=== PATIENT | female | born 2000 | race Caucasian/White ===

== ENCOUNTER 2018-07-02 15:50 | Emergency (ER) | payer MEDICAID, OTHER ==
[2018-07-02 17:53] LABS: URINE BLOOD (Dip) POC Trace-intact (NEGATIVE); URINE GLUCOSE (Dip) POC Negative (NEGATIVE); URINE KETONES (Dip) POC 2+ (NEGATIVE); URINE LEUKOCYTE EST (Dip) POC Negative (NEGATIVE); URINE NITRITE (Dip) POC Negative (NEGATIVE); URINE TOTAL PROTEIN POC Trace (NEGATIVE)
== END 2018-07-02 18:15 | disposition home or self-care (01) ==
LOC: FTE 18:15
DX: R10.2 Pelvic and perineal pain (principal)
CPT/HCPCS: 76856; 81003; 81025; 99284-25

== ENCOUNTER 2018-08-17 13:50 | Emergency (ER) | payer SELFPAY, MEDICAID | END 2018-08-17 16:35 | disposition left against medical advice (07) | LOC: FTE 13:50 | DX: Z53.21 Procedure and treatment not carried out due to patient leaving prior to being seen by health care provider (principal) ==

== ENCOUNTER 2018-08-23 12:36 | Emergency (ER) | payer OTHER ==
[2018-08-23 13:44] LABS: URINE BLOOD (Dip) POC Negative (NEGATIVE); URINE GLUCOSE (Dip) POC Negative (NEGATIVE); URINE KETONES (Dip) POC 2+ (NEGATIVE); URINE LEUKOCYTE EST (Dip) POC Negative (NEGATIVE); URINE NITRITE (Dip) POC Negative (NEGATIVE); URINE TOTAL PROTEIN POC Trace (NEGATIVE)
[2018-08-23] MEDS: METOCLOPRAMIDE 10 MG INJ IV (13:49)
[2018-08-23] MEDS: SOD CHLORIDE 0.9% 1,000 ML IV (13:50)
[2018-08-23 13:58] LABS: ADD MAN DIFF? NO
[2018-08-23 14:05] LABS: BASOPHILS % 0.1 % (0.0-2.0); EOSINOPHILS % 0.5 % (0.0-7.0); HEMATOCRIT 40.5 % (37.0-47.0); HEMOGLOBIN 13.1 g/dl (12.0-16.0); LYMPHOCYTES # 1.8 10^3/ul (0.8-2.9); LYMPHOCYTES % 22.8 % (18.0-55.0); MEAN CORPUSCULAR HEMOGLOBIN 26.6 pg (29.0-33.0); MEAN CORPUSCULAR HGB CONC 32.3 g/dl (32.0-37.0); MEAN CORPUSCULAR VOLUME 82.2 fl (72.0-104.0); MEAN PLATELET VOLUME 10.4 fl (7.4-10.4); MONOCYTE # 0.6 10^3/ul (0.3-0.9); MONOCYTES % 7.7 % (0.0-13.0); NEUTROPHIL # 5.5 10^3/ul (1.6-7.5); NEUTROPHILS % 68.4 % (30.0-74.0); PLATELET COUNT 295 10^3/UL (140-415); RED BLOOD COUNT 4.93 10^6/ul (4.20-5.40); RED CELL DISTRIBUTION WIDTH 15.9 % (11.5-14.5)
[2018-08-23 14:24] LABS: ALANINE AMINOTRANSFERASE 17 IU/L (13-69); ALBUMIN 4.7 g/dl (3.3-4.9); ALKALINE PHOSPHATASE 72 IU/L (42-121); ANION GAP 14 (5-13); ASPARTATE AMINO TRANSFERASE 25 IU/L (15-46); BILIRUBIN,INDIRECT 0.5 mg/dl (0-1.1); BILIRUBIN,TOTAL 0.5 mg/dl (0.2-1.3); BLOOD UREA NITROGEN 5 mg/dl (7-20); CALCIUM 9.7 mg/dl (8.4-10.2); CARBON DIOXIDE 22 mmol/L (21-31); CHLORIDE 102 mmol/L (97-110); CREATININE 0.48 mg/dl (0.44-1.00); Estimated GFR > 60 mL/min (>60); GLUCOSE 85 mg/dl (70-220); POTASSIUM 3.7 mmol/L (3.5-5.1); SODIUM 138 mmol/L (135-144); TOTAL PROTEIN 8.3 g/dl (6.1-8.1)
[2018-08-23 14:58] LABS: ADD UMIC NO; UR ASCORBIC ACID NEGATIVE (NEGATIVE); UR BILIRUBIN (Dip) NEGATIVE (NEGATIVE); UR BLOOD (Dip) NEGATIVE (NEGATIVE); UR CLARITY CLEAR (CLEAR); UR COLOR YELLOW (YELLOW); UR GLUCOSE (Dip) NEGATIVE (NEGATIVE); UR KETONES (Dip) 1+ mg/dL (NEGATIVE); UR LEUKOCYTE ESTERASE (Dip) NEGATIVE Leu/ul (NEGATIVE); UR NITRITE (Dip) NEGATIVE (NEGATIVE); UR SPECIFIC GRAVITY (Dip) 1.016 (1.003-1.030); UR TOTAL PROTEIN (Dip) NEGATIVE (NEGATIVE); UR UROBILINOGEN (Dip) NEGATIVE (NEGATIVE)
== END 2018-08-23 17:16 | disposition home or self-care (01) ==
LOC: FTE 12:36
DX: O21.0 Mild hyperemesis gravidarum (principal); R10.2 Pelvic and perineal pain; O10.011 Pre-existing essential hypertension complicating pregnancy, first trimester; Z3A.01 Less than 8 weeks gestation of pregnancy
CPT/HCPCS: 36415; 76705; 76801; 80053; 81003; 84702; 85025; 96374; 99285-25

== ENCOUNTER 2018-09-02 14:08 | Emergency (ER) | payer OTHER ==
[2018-09-02] MEDS: SOD CHLORIDE 0.9% 1,000 ML IV (16:37)
[2018-09-02] MEDS: METOCLOPRAMIDE 10 MG INJ IV (16:39)
[2018-09-02 16:41] LABS: ADD MAN DIFF? NO
[2018-09-02 16:44] LABS: BASOPHILS % 0.2 % (0.0-2.0); EOSINOPHILS % 0.3 % (0.0-7.0); HEMATOCRIT 37.9 % (37.0-47.0); HEMOGLOBIN 12.6 g/dl (12.0-16.0); LYMPHOCYTES % 18.5 % (18.0-55.0); MEAN CORPUSCULAR HEMOGLOBIN 27.2 pg (29.0-33.0); MEAN CORPUSCULAR HGB CONC 33.2 g/dl (32.0-37.0); MEAN CORPUSCULAR VOLUME 81.9 fl (72.0-104.0); MEAN PLATELET VOLUME 10.1 fl (7.4-10.4); MONOCYTE # 0.6 10^3/ul (0.3-0.9); MONOCYTES % 5.9 % (0.0-13.0); NEUTROPHIL # 8.1 10^3/ul (1.6-7.5); NEUTROPHILS % 74.6 % (30.0-74.0); PLATELET COUNT 292 10^3/UL (140-415); RED BLOOD COUNT 4.63 10^6/ul (4.20-5.40); RED CELL DISTRIBUTION WIDTH 15.5 % (11.5-14.5)
[2018-09-02 16:44] LABS: WHITE BLOOD COUNT 10.8 10^3/ul (4.8-10.8)
[2018-09-02 17:03] LABS: ALANINE AMINOTRANSFERASE 13 IU/L (13-69); ALBUMIN 4.6 g/dl (3.3-4.9); ALBUMIN/GLOBULIN RATIO 1.31; ALKALINE PHOSPHATASE 71 IU/L (42-121); ANION GAP 12 (5-13); ASPARTATE AMINO TRANSFERASE 21 IU/L (15-46); BILIRUBIN,INDIRECT 0.6 mg/dl (0-1.1); BILIRUBIN,TOTAL 0.6 mg/dl (0.2-1.3); BLOOD UREA NITROGEN 7 mg/dl (7-20); CALCIUM 9.9 mg/dl (8.4-10.2); CARBON DIOXIDE 21 mmol/L (21-31); CHLORIDE 105 mmol/L (97-110); Estimated GFR > 60 mL/min (>60); GLUCOSE 78 mg/dl (70-220); POTASSIUM 3.6 mmol/L (3.5-5.1); SODIUM 138 mmol/L (135-144); TOTAL PROTEIN 8.1 g/dl (6.1-8.1)
[2018-09-02 17:05] LABS: ADD UMIC NO; UR ASCORBIC ACID NEGATIVE (NEGATIVE); UR BILIRUBIN (Dip) NEGATIVE (NEGATIVE); UR BLOOD (Dip) NEGATIVE (NEGATIVE); UR CLARITY SLIGHTLY CLOUDY (CLEAR); UR COLOR YELLOW (YELLOW); UR GLUCOSE (Dip) NEGATIVE (NEGATIVE); UR KETONES (Dip) 2+ mg/dL (NEGATIVE); UR LEUKOCYTE ESTERASE (Dip) NEGATIVE Leu/ul (NEGATIVE); UR MUCUS MANY /HPF (NONE SEEN); UR NITRITE (Dip) NEGATIVE (NEGATIVE); UR RBC 2 /HPF (0-5); UR SPECIFIC GRAVITY (Dip) 1.026 (1.003-1.030); UR SQUAMOUS EPITHELIAL CELL MODERATE /HPF (FEW); UR TOTAL PROTEIN (Dip) NEGATIVE (NEGATIVE); UR UROBILINOGEN (Dip) 1+ mg/dL (NEGATIVE); UR WBC 2 /HPF (0-5)
== END 2018-09-02 18:45 | disposition home or self-care (01) ==
LOC: FTE 14:08
DX: O20.9 Hemorrhage in early pregnancy, unspecified (principal); O21.0 Mild hyperemesis gravidarum; O10.011 Pre-existing essential hypertension complicating pregnancy, first trimester; R10.2 Pelvic and perineal pain; Z3A.08 8 weeks gestation of pregnancy
CPT/HCPCS: 76801; 80053; 81001; 81003; 81025; 84702; 85025; 86900; 86901; 96361; 96374; 99285-25

== ENCOUNTER 2018-09-24 12:16 | Emergency (ER) | payer OTHER ==
[2018-09-24 13:29] LABS: ADD MAN DIFF? NO
[2018-09-24 13:34] LABS: WHITE BLOOD COUNT 8.8 10^3/ul (4.8-10.8)
[2018-09-24 13:35] LABS: BASOPHILS % 0.2 % (0.0-2.0); EOSINOPHILS % 0.2 % (0.0-7.0); HEMATOCRIT 37.2 % (37.0-47.0); HEMOGLOBIN 12.7 g/dl (12.0-16.0); LYMPHOCYTES # 1.9 10^3/ul (0.8-2.9); LYMPHOCYTES % 22.1 % (18.0-55.0); MEAN CORPUSCULAR HEMOGLOBIN 27.9 pg (29.0-33.0); MEAN CORPUSCULAR HGB CONC 34.1 g/dl (32.0-37.0); MEAN CORPUSCULAR VOLUME 81.6 fl (72.0-104.0); MEAN PLATELET VOLUME 9.9 fl (7.4-10.4); MONOCYTE # 0.5 10^3/ul (0.3-0.9); MONOCYTES % 5.6 % (0.0-13.0); NEUTROPHIL # 6.3 10^3/ul (1.6-7.5); NEUTROPHILS % 71.6 % (30.0-74.0); PLATELET COUNT 275 10^3/UL (140-415); RED BLOOD COUNT 4.56 10^6/ul (4.20-5.40); RED CELL DISTRIBUTION WIDTH 14.8 % (11.5-14.5)
[2018-09-24 15:06] LABS: URINE BLOOD (Dip) POC Trace-intact (NEGATIVE); URINE GLUCOSE (Dip) POC Negative (NEGATIVE); URINE KETONES (Dip) POC Negative (NEGATIVE); URINE LEUKOCYTE EST (Dip) POC Negative (NEGATIVE); URINE NITRITE (Dip) POC Negative (NEGATIVE); URINE TOTAL PROTEIN POC Negative (NEGATIVE)
[2018-09-24] MEDS: ACETAMINOPHEN 325 MG TAB PO (15:06)
== END 2018-09-24 15:40 | disposition home or self-care (01) ==
LOC: FTE 12:16
DX: O20.0 Threatened abortion (principal); O10.011 Pre-existing essential hypertension complicating pregnancy, first trimester; Z3A.12 12 weeks gestation of pregnancy
CPT/HCPCS: 36415; 76801; 81003; 84702; 85025; 99284-25

== ENCOUNTER 2018-11-18 23:30 | Outpatient (CLI) | payer OTHER ==
[2018-11-19 00:37] LABS: ADD UMIC YES; UR ASCORBIC ACID NEGATIVE (NEGATIVE); UR BACTERIA FEW /HPF (NONE SEEN); UR BILIRUBIN (Dip) NEGATIVE (NEGATIVE); UR BLOOD (Dip) NEGATIVE (NEGATIVE); UR CLARITY CLOUDY (CLEAR); UR COLOR YELLOW (YELLOW); UR GLUCOSE (Dip) NEGATIVE (NEGATIVE); UR KETONES (Dip) NEGATIVE (NEGATIVE); UR LEUKOCYTE ESTERASE (Dip) 2+ Leu/ul (NEGATIVE); UR MUCUS FEW /HPF (NONE SEEN); UR NITRITE (Dip) NEGATIVE (NEGATIVE); UR RBC 3 /HPF (0-5); UR SPECIFIC GRAVITY (Dip) 1.027 (1.003-1.030); UR SQUAMOUS EPITHELIAL CELL MANY /HPF (FEW); UR TOTAL PROTEIN (Dip) NEGATIVE (NEGATIVE); UR UROBILINOGEN (Dip) NEGATIVE (NEGATIVE); UR WBC 9 /HPF (0-5)
== END 2018-11-19 02:27 | disposition home or self-care (01) ==
LOC: OBT 23:30 → L-D 23:30
DX: O26.892 Other specified pregnancy related conditions, second trimester (principal); R10.9 Unspecified abdominal pain; Z3A.23 23 weeks gestation of pregnancy
CPT/HCPCS: 76815; 76817; 81001; 87086

== ENCOUNTER 2018-11-26 14:08 | Inpatient (IN) | payer MEDICAID, OTHER ==
[2018-11-26 15:27] LABS: ADD MAN DIFF? NO
[2018-11-26 15:29] LABS: BASOPHILS % 0.4 % (0.0-2.0); EOSINOPHILS # 0.1 10^3/ul (0.0-0.5); EOSINOPHILS % 1.3 % (0.0-7.0); HEMOGLOBIN 10.9 g/dl (12.0-16.0); LYMPHOCYTES # 2.1 10^3/ul (0.8-2.9); LYMPHOCYTES % 24.4 % (18.0-55.0); MEAN CORPUSCULAR HEMOGLOBIN 28.4 pg (29.0-33.0); MEAN CORPUSCULAR HGB CONC 34.1 g/dl (32.0-37.0); MEAN CORPUSCULAR VOLUME 83.3 fl (72.0-104.0); MEAN PLATELET VOLUME 10.5 fl (7.4-10.4); MONOCYTE # 0.7 10^3/ul (0.3-0.9); MONOCYTES % 8.2 % (0.0-13.0); NEUTROPHIL # 5.6 10^3/ul (1.6-7.5); PLATELET COUNT 223 10^3/UL (140-415); RED BLOOD COUNT 3.84 10^6/ul (4.20-5.40); RED CELL DISTRIBUTION WIDTH 13.4 % (11.5-14.5)
[2018-11-26 15:29] LABS: WHITE BLOOD COUNT 8.5 10^3/ul (4.8-10.8)
[2018-11-26 16:01] LABS: ADD UMIC NO; UR ASCORBIC ACID NEGATIVE (NEGATIVE); UR BILIRUBIN (Dip) NEGATIVE (NEGATIVE); UR BLOOD (Dip) NEGATIVE (NEGATIVE); UR CLARITY CLEAR (CLEAR); UR COLOR YELLOW (YELLOW); UR GLUCOSE (Dip) NEGATIVE (NEGATIVE); UR KETONES (Dip) NEGATIVE (NEGATIVE); UR LEUKOCYTE ESTERASE (Dip) NEGATIVE Leu/ul (NEGATIVE); UR NITRITE (Dip) NEGATIVE (NEGATIVE); UR SPECIFIC GRAVITY (Dip) 1.018 (1.003-1.030); UR TOTAL PROTEIN (Dip) NEGATIVE (NEGATIVE); UR UROBILINOGEN (Dip) NEGATIVE (NEGATIVE)
[2018-11-26] MEDS: LACTATED RINGER'S 1,000 ML IV ×3 (16:27→23:55)
[2018-11-26] MEDS: GENTAMICIN 80 MG/NS (PMX) 50 ML IVPB ×2 (16:31→23:55)
[2018-11-26] MEDS: ACETAMINOPHEN 325 MG TAB PO (19:37)
[2018-11-27] MEDS: GENTAMICIN 80 MG/NS (PMX) 50 ML IVPB ×3 (08:01→23:12)
[2018-11-27] MEDS: LACTATED RINGER'S 1,000 ML IV ×3 (08:02→23:12)
[2018-11-27] MEDS: FERROUS SULFATE (EC) 325 MG TAB PO (09:06)
[2018-11-27] MEDS: PRENATAL VITAMIN PO (09:06)
[2018-11-27] MEDS: HYDROCODONE/APAP (10/325) TAB PO (10:35)
[2018-11-27] MEDS: ONDANSETRON 4 MG INJ IV (10:35)
[2018-11-27] MEDS: ACETAMINOPHEN 325 MG TAB PO (19:43)
[2018-11-28] MEDS: ACETAMINOPHEN 325 MG TAB PO ×2 (00:13→20:26)
[2018-11-28] MEDS: GENTAMICIN 80 MG/NS (PMX) 50 ML IVPB (06:12)
[2018-11-28] MEDS: LACTATED RINGER'S 1,000 ML IV ×2 (06:12→18:43)
[2018-11-28] MEDS: PRENATAL VITAMIN PO (10:08)
[2018-11-28] MEDS: FERROUS SULFATE (EC) 325 MG TAB PO (10:08)
[2018-11-28] MEDS: NA PHOSPHATE/BIPHOS 133 ML ENEMA PR (10:20)
[2018-11-28] MEDS: DOCUSATE SODIUM 100 MG CAP PO ×2 (10:20→20:27)
[2018-11-28 10:26] LABS: ADD MAN DIFF? NO
[2018-11-28 10:31] LABS: BASOPHILS % 0.3 % (0.0-2.0); EOSINOPHILS # 0.1 10^3/ul (0.0-0.5); EOSINOPHILS % 0.8 % (0.0-7.0); HEMOGLOBIN 10.2 g/dl (12.0-16.0); LYMPHOCYTES # 1.7 10^3/ul (0.8-2.9); LYMPHOCYTES % 24.3 % (18.0-55.0); MEAN CORPUSCULAR HEMOGLOBIN 27.6 pg (29.0-33.0); MEAN CORPUSCULAR HGB CONC 32.9 g/dl (32.0-37.0); MEAN PLATELET VOLUME 10.9 fl (7.4-10.4); MONOCYTE # 0.5 10^3/ul (0.3-0.9); MONOCYTES % 7.3 % (0.0-13.0); NEUTROPHIL # 4.8 10^3/ul (1.6-7.5); NEUTROPHILS % 66.7 % (30.0-74.0); PLATELET COUNT 211 10^3/UL (140-415); RED BLOOD COUNT 3.69 10^6/ul (4.20-5.40); RED CELL DISTRIBUTION WIDTH 13.6 % (11.5-14.5)
[2018-11-28 10:31] LABS: WHITE BLOOD COUNT 7.1 10^3/ul (4.8-10.8)
[2018-11-28 10:50] LABS: ADD UMIC NO; UR ASCORBIC ACID NEGATIVE (NEGATIVE); UR BILIRUBIN (Dip) NEGATIVE (NEGATIVE); UR BLOOD (Dip) NEGATIVE (NEGATIVE); UR CLARITY CLEAR (CLEAR); UR COLOR STRAW (YELLOW); UR GLUCOSE (Dip) NEGATIVE (NEGATIVE); UR KETONES (Dip) NEGATIVE (NEGATIVE); UR LEUKOCYTE ESTERASE (Dip) NEGATIVE Leu/ul (NEGATIVE); UR NITRITE (Dip) NEGATIVE (NEGATIVE); UR SPECIFIC GRAVITY (Dip) 1.001 (1.003-1.030); UR TOTAL PROTEIN (Dip) NEGATIVE (NEGATIVE); UR UROBILINOGEN (Dip) NEGATIVE (NEGATIVE)
[2018-11-28] MEDS: ACETAMINOPHEN 1000MG/100ML IV 100 ML IVPB (10:58)
[2018-11-28] MEDS: ONDANSETRON 4 MG INJ IV (11:28)
[2018-11-28] MEDS: CYCLOBENZAPRINE 10 MG TAB PO (16:05)
[2018-11-28] MEDS: metroNIDAZOLE 500 MG TAB PO (20:28)
[2018-11-28 20:33] LABS: AMPHETAMINE/METHAMPHETAMINE Negative (NEGATIVE); BARBITURATES Negative (NEGATIVE); BENZODIAZEPINES Negative (NEGATIVE); CANNABINOIDS Negative (NEGATIVE); COCAINE Negative (NEGATIVE); OPIATES Negative (NEGATIVE)
[2018-11-28] MEDS ORDERED: MICONAZOLE 2% 45 GM VAG CR VAG (21:00)
[2018-11-29] MEDS: PRENATAL VITAMIN PO (10:05)
[2018-11-29] MEDS: DOCUSATE SODIUM 100 MG CAP PO (10:06)
[2018-11-29] MEDS: ACETAMINOPHEN 325 MG TAB PO (10:13)
[2018-11-29] MEDS: LACTATED RINGER'S 1,000 ML IV (15:20)
[2018-11-29] MEDS: GENTAMICIN 80 MG/NS (PMX) 50 ML IVPB (15:21)
[2018-11-29 15:22] LABS: RAPID PLASMA REAGIN NONREACTIVE (NR)
== END 2018-11-29 19:08 | disposition left against medical advice (07) | DRG 833 ==
LOC: OBT 14:08 → L-D 14:09 → OBT 14:30 → PP1 14:30
DX: O23.02 Infections of kidney in pregnancy, second trimester (principal); Z3A.22 22 weeks gestation of pregnancy
CPT/HCPCS: 76775; 76815; 76817; 80307; 81003; 85025; 86592; 87086; 87110; 87210

== ENCOUNTER 2018-11-29 22:17 | Inpatient (IN) | payer MEDICAID ==
[2018-11-30] MEDS ORDERED: metroNIDAZOLE 500 MG TAB PO
[2018-11-30] MEDS: HYDROCODONE/APAP (5/325) TAB PO (00:12)
[2018-11-30 01:39] LABS: ADD UMIC YES; UR ASCORBIC ACID NEGATIVE (NEGATIVE); UR BACTERIA FEW /HPF (NONE SEEN); UR BILIRUBIN (Dip) 1+ mg/dL (NEGATIVE); UR BLOOD (Dip) NEGATIVE (NEGATIVE); UR CLARITY CLOUDY (CLEAR); UR COLOR AMBER (YELLOW); UR GLUCOSE (Dip) NEGATIVE (NEGATIVE); UR KETONES (Dip) TRACE mg/dL (NEGATIVE); UR LEUKOCYTE ESTERASE (Dip) TRACE Leu/ul (NEGATIVE); UR MUCUS MANY /HPF (NONE SEEN); UR NITRITE (Dip) NEGATIVE (NEGATIVE); UR RBC 1 /HPF (0-5); UR SPECIFIC GRAVITY (Dip) 1.029 (1.003-1.030); UR SQUAMOUS EPITHELIAL CELL MANY /HPF (FEW); UR TOTAL PROTEIN (Dip) 2+ mg/dl (NEGATIVE); UR UROBILINOGEN (Dip) 1+ mg/dL (NEGATIVE); UR WBC 5 /HPF (0-5)
[2018-11-30] MEDS: GENTAMICIN 80 MG/NS (PMX) 50 ML IVPB ×2 (02:00→09:08)
[2018-11-30 02:16] LABS: AMPHETAMINE/METHAMPHETAMINE Negative (NEGATIVE); BARBITURATES Negative (NEGATIVE); BENZODIAZEPINES Negative (NEGATIVE); OPIATES Negative (NEGATIVE)
[2018-11-30] MEDS: LACTATED RINGER'S 1,000 ML IV ×2 (02:24→09:09)
[2018-11-30 03:08] LABS: ADD MAN DIFF? NO
[2018-11-30 03:12] LABS: WHITE BLOOD COUNT 9.6 10^3/ul (4.8-10.8)
[2018-11-30 03:12] LABS: BASOPHILS % 0.3 % (0.0-2.0); EOSINOPHILS # 0.1 10^3/ul (0.0-0.5); EOSINOPHILS % 0.6 % (0.0-7.0); HEMATOCRIT 28.9 % (37.0-47.0); HEMOGLOBIN 9.9 g/dl (12.0-16.0); LYMPHOCYTES # 2.1 10^3/ul (0.8-2.9); LYMPHOCYTES % 21.8 % (18.0-55.0); MEAN CORPUSCULAR HEMOGLOBIN 28.3 pg (29.0-33.0); MEAN CORPUSCULAR HGB CONC 34.3 g/dl (32.0-37.0); MEAN CORPUSCULAR VOLUME 82.6 fl (72.0-104.0); MONOCYTE # 0.8 10^3/ul (0.3-0.9); MONOCYTES % 8.2 % (0.0-13.0); NEUTROPHIL # 6.5 10^3/ul (1.6-7.5); NEUTROPHILS % 68.4 % (30.0-74.0); PLATELET COUNT 221 10^3/UL (140-415); RED CELL DISTRIBUTION WIDTH 13.3 % (11.5-14.5)
[2018-11-30 03:58] LABS: CANNABINOIDS POSITIVE (NEGATIVE); COCAINE POSITIVE (NEGATIVE)
[2018-11-30] MEDS: metroNIDAZOLE 500 MG TAB PO (06:01)
[2018-11-30] MEDS ORDERED: ACETAMINOPHEN 325 MG TAB PO (08:00)
[2018-11-30] MEDS: PRENATAL VITAMIN PO (09:00)
[2018-11-30] MEDS: ONDANSETRON 4 MG INJ IV (09:36)
[2018-11-30] MEDS: ACETAMINOPHEN 1000MG/100ML IV 100 ML IVPB (09:36)
== END 2018-11-30 10:55 | disposition home or self-care (01) | DRG 833 ==
LOC: OBT 22:17 → L-D 11-30 01:27 → OBT 23:23 → L-D 23:54
DX: O26.892 Other specified pregnancy related conditions, second trimester (principal); Z3A.21 21 weeks gestation of pregnancy; M62.830 Muscle spasm of back
CPT/HCPCS: 80307; 81001; 85025; 86850; 86900; 86901

== ENCOUNTER 2018-12-14 15:43 | Outpatient (CLI) | payer OTHER ==
[2018-12-14] MEDS: LACTATED RINGER'S 1,000 ML IV (16:33)
[2018-12-14 16:57] LABS: ADD MAN DIFF? NO
[2018-12-14 16:59] LABS: WHITE BLOOD COUNT 10.8 10^3/ul (4.8-10.8)
[2018-12-14 16:59] LABS: BASOPHILS % 0.4 % (0.0-2.0); EOSINOPHILS % 0.4 % (0.0-7.0); HEMATOCRIT 32.1 % (37.0-47.0); HEMOGLOBIN 10.7 g/dl (12.0-16.0); LYMPHOCYTES # 1.7 10^3/ul (0.8-2.9); LYMPHOCYTES % 16.1 % (18.0-55.0); MEAN CORPUSCULAR HGB CONC 33.3 g/dl (32.0-37.0); MEAN PLATELET VOLUME 10.8 fl (7.4-10.4); MONOCYTE # 0.7 10^3/ul (0.3-0.9); NEUTROPHIL # 8.2 10^3/ul (1.6-7.5); NEUTROPHILS % 76.3 % (30.0-74.0); PLATELET COUNT 257 10^3/UL (140-415); RED BLOOD COUNT 3.82 10^6/ul (4.20-5.40); RED CELL DISTRIBUTION WIDTH 13.3 % (11.5-14.5)
[2018-12-14 17:07] LABS: ADD UMIC YES; UR ASCORBIC ACID NEGATIVE (NEGATIVE); UR BILIRUBIN (Dip) NEGATIVE (NEGATIVE); UR BLOOD (Dip) NEGATIVE (NEGATIVE); UR CLARITY CLOUDY (CLEAR); UR COLOR YELLOW (YELLOW); UR GLUCOSE (Dip) NEGATIVE (NEGATIVE); UR KETONES (Dip) NEGATIVE (NEGATIVE); UR LEUKOCYTE ESTERASE (Dip) NEGATIVE Leu/ul (NEGATIVE); UR MUCUS MANY /HPF (NONE SEEN); UR NITRITE (Dip) NEGATIVE (NEGATIVE); UR RBC 51 /HPF (0-5); UR SPECIFIC GRAVITY (Dip) 1.021 (1.003-1.030); UR SQUAMOUS EPITHELIAL CELL MODERATE /HPF (FEW); UR TOTAL PROTEIN (Dip) NEGATIVE (NEGATIVE); UR UROBILINOGEN (Dip) NEGATIVE (NEGATIVE); UR WBC 13 /HPF (0-5)
[2018-12-14 17:17] LABS: ALANINE AMINOTRANSFERASE 8 IU/L (13-69); ALBUMIN 3.8 g/dl (3.3-4.9); ALBUMIN/GLOBULIN RATIO 1.08; ALKALINE PHOSPHATASE 60 IU/L (42-121); ANION GAP 8 (5-13); ASPARTATE AMINO TRANSFERASE 20 IU/L (15-46); BILIRUBIN,INDIRECT 0.3 mg/dl (0-1.1); BILIRUBIN,TOTAL 0.3 mg/dl (0.2-1.3); BLOOD UREA NITROGEN 5 mg/dl (7-20); CALCIUM 9.2 mg/dl (8.4-10.2); CARBON DIOXIDE 21 mmol/L (21-31); CHLORIDE 107 mmol/L (97-110); CREATININE 0.49 mg/dl (0.44-1.00); Estimated GFR > 60 mL/min (>60); GLUCOSE 98 mg/dl (70-220); POTASSIUM 3.6 mmol/L (3.5-5.1); SODIUM 136 mmol/L (135-144); TOTAL PROTEIN 7.3 g/dl (6.1-8.1)
== END 2018-12-14 18:20 | disposition home or self-care (01) ==
LOC: OBT 15:43 → L-D 15:43 → OBT 18:20
DX: O26.892 Other specified pregnancy related conditions, second trimester (principal); Z3A.24 24 weeks gestation of pregnancy; R07.9 Chest pain, unspecified; R06.02 Shortness of breath; R19.7 Diarrhea, unspecified
CPT/HCPCS: 36415; 76815; 76817; 80053; 81001; 82962; 85025; 96360; 96361

== ENCOUNTER 2018-12-14 18:26 | Emergency (ER) | payer MEDICAID, OTHER ==
[2018-12-14] MEDS: CYCLOBENZAPRINE 10 MG TAB PO (19:16)
== END 2018-12-14 19:28 | disposition home or self-care (01) ==
LOC: FTE 18:26
DX: O26.892 Other specified pregnancy related conditions, second trimester (principal); R07.89 Other chest pain; M62.838 Other muscle spasm; O99.89 Other specified diseases and conditions complicating pregnancy, childbirth and the puerperium; O13.9 Gestational [pregnancy-induced] hypertension without significant proteinuria, unspecified trimester; Z3A.24 24 weeks gestation of pregnancy
CPT/HCPCS: 93005; 99283-25

== ENCOUNTER 2018-12-25 18:53 | Emergency (ER) | payer OTHER, MEDICAID | END 2018-12-25 20:03 | disposition left against medical advice (07) | LOC: FTE 20:03 | DX: Z53.21 Procedure and treatment not carried out due to patient leaving prior to being seen by health care provider (principal) ==

== ENCOUNTER 2018-12-25 20:02 | Outpatient (CLI) | payer OTHER, MEDICAID ==
[2018-12-25 22:03] LABS: ADD MAN DIFF? NO
[2018-12-25 22:07] LABS: WHITE BLOOD COUNT 9.1 10^3/ul (4.8-10.8)
[2018-12-25 22:07] LABS: BASOPHILS % 0.2 % (0.0-2.0); EOSINOPHILS # 0.1 10^3/ul (0.0-0.5); EOSINOPHILS % 0.5 % (0.0-7.0); HEMATOCRIT 32.3 % (37.0-47.0); HEMOGLOBIN 10.5 g/dl (12.0-16.0); LYMPHOCYTES # 2.3 10^3/ul (0.8-2.9); LYMPHOCYTES % 24.9 % (18.0-55.0); MEAN CORPUSCULAR HEMOGLOBIN 27.6 pg (29.0-33.0); MEAN CORPUSCULAR HGB CONC 32.5 g/dl (32.0-37.0); MEAN CORPUSCULAR VOLUME 84.8 fl (72.0-104.0); MEAN PLATELET VOLUME 11.2 fl (7.4-10.4); MONOCYTE # 0.9 10^3/ul (0.3-0.9); MONOCYTES % 9.6 % (0.0-13.0); NEUTROPHIL # 5.9 10^3/ul (1.6-7.5); NEUTROPHILS % 64.3 % (30.0-74.0); PLATELET COUNT 238 10^3/UL (140-415); RED BLOOD COUNT 3.81 10^6/ul (4.20-5.40); RED CELL DISTRIBUTION WIDTH 13.2 % (11.5-14.5)
[2018-12-25 22:27] LABS: ALANINE AMINOTRANSFERASE 18 IU/L (13-69); ALBUMIN 3.7 g/dl (3.3-4.9); ALBUMIN/GLOBULIN RATIO 1.08; ALKALINE PHOSPHATASE 71 IU/L (42-121); ANION GAP 5 (5-13); ASPARTATE AMINO TRANSFERASE 25 IU/L (15-46); BILIRUBIN,INDIRECT 0.3 mg/dl (0-1.1); BILIRUBIN,TOTAL 0.3 mg/dl (0.2-1.3); BLOOD UREA NITROGEN 9 mg/dl (7-20); CALCIUM 9.3 mg/dl (8.4-10.2); CARBON DIOXIDE 25 mmol/L (21-31); CHLORIDE 105 mmol/L (97-110); CREATININE 0.62 mg/dl (0.44-1.00); Estimated GFR > 60 mL/min (>60); GLUCOSE 88 mg/dl (70-220); POTASSIUM 4.2 mmol/L (3.5-5.1); SODIUM 135 mmol/L (135-144); TOTAL PROTEIN 7.1 g/dl (6.1-8.1)
[2018-12-26 00:01] LABS: ALANINE AMINOTRANSFERASE 16 IU/L (13-69); ALBUMIN 3.8 g/dl (3.3-4.9); ALKALINE PHOSPHATASE 70 IU/L (42-121); ASPARTATE AMINO TRANSFERASE 26 IU/L (15-46); BILIRUBIN,INDIRECT 0.3 mg/dl (0-1.1); BILIRUBIN,TOTAL 0.3 mg/dl (0.2-1.3); TOTAL PROTEIN 7.2 g/dl (6.1-8.1)
[2018-12-29 15:11] LABS: CHENODEOXYCHOLIC ACID <0.5 umol/L (< OR = 3.1); CHOLIC ACID <0.5 umol/L (< OR = 1.8); DEOXYCHOLIC ACID <0.5 umol/L (< OR = 2.4); TOTAL BILE ACIDS <1.5 umol/L (< OR = 6.8)
== END 2018-12-26 00:55 | disposition home or self-care (01) ==
LOC: OBT 20:02 → L-D 20:03
DX: O26.892 Other specified pregnancy related conditions, second trimester (principal); L29.9 Pruritus, unspecified; Z3A.25 25 weeks gestation of pregnancy
CPT/HCPCS: 76815; 80053; 80076; 83789; 85025

== ENCOUNTER 2018-12-29 12:27 | Outpatient (CLI) | payer OTHER | END 2018-12-29 14:45 | disposition home or self-care (01) | LOC: OBT 12:27 → L-D 12:27 → OBT 14:45 | DX: O26.612 Liver and biliary tract disorders in pregnancy, second trimester (principal); K83.1 Obstruction of bile duct; Z3A.26 26 weeks gestation of pregnancy | CPT/HCPCS: 76818 ==

== ENCOUNTER 2019-01-01 16:38 | Outpatient (CLI) | payer OTHER ==
[2019-01-01 18:59] LABS: ALANINE AMINOTRANSFERASE 27 IU/L (13-69); ALBUMIN 3.8 g/dl (3.3-4.9); ALBUMIN/GLOBULIN RATIO 1.08; ALKALINE PHOSPHATASE 91 IU/L (42-121); ANION GAP 9 (5-13); ASPARTATE AMINO TRANSFERASE 22 IU/L (15-46); BILIRUBIN,INDIRECT 0.4 mg/dl (0-1.1); BILIRUBIN,TOTAL 0.4 mg/dl (0.2-1.3); BLOOD UREA NITROGEN 7 mg/dl (7-20); CALCIUM 9.2 mg/dl (8.4-10.2); CARBON DIOXIDE 22 mmol/L (21-31); CHLORIDE 105 mmol/L (97-110); Estimated GFR > 60 mL/min (>60); GLUCOSE 74 mg/dl (70-220); POTASSIUM 3.8 mmol/L (3.5-5.1); SODIUM 136 mmol/L (135-144); TOTAL PROTEIN 7.3 g/dl (6.1-8.1)
[2019-01-01 19:57] LABS: ADD MAN DIFF? NO
[2019-01-01 19:58] LABS: BASOPHILS % 0.3 % (0.0-2.0); EOSINOPHILS # 0.1 10^3/ul (0.0-0.5); EOSINOPHILS % 0.5 % (0.0-7.0); HEMATOCRIT 34.2 % (37.0-47.0); LYMPHOCYTES # 1.7 10^3/ul (0.8-2.9); LYMPHOCYTES % 16.1 % (18.0-55.0); MEAN CORPUSCULAR HEMOGLOBIN 27.2 pg (29.0-33.0); MEAN CORPUSCULAR HGB CONC 32.2 g/dl (32.0-37.0); MEAN CORPUSCULAR VOLUME 84.4 fl (72.0-104.0); MEAN PLATELET VOLUME 11.3 fl (7.4-10.4); MONOCYTE # 0.7 10^3/ul (0.3-0.9); NEUTROPHIL # 7.7 10^3/ul (1.6-7.5); NEUTROPHILS % 74.8 % (30.0-74.0); PLATELET COUNT 242 10^3/UL (140-415); RED BLOOD COUNT 4.05 10^6/ul (4.20-5.40); RED CELL DISTRIBUTION WIDTH 12.7 % (11.5-14.5)
[2019-01-01 19:58] LABS: WHITE BLOOD COUNT 10.3 10^3/ul (4.8-10.8)
[2019-01-04 10:21] LABS: CHENODEOXYCHOLIC ACID 1.2 umol/L (< OR = 3.1); CHOLIC ACID <0.5 umol/L (< OR = 1.8); DEOXYCHOLIC ACID 0.6 umol/L (< OR = 2.4); TOTAL BILE ACIDS 1.8 umol/L (< OR = 6.8)
== END 2019-01-01 20:42 | disposition home or self-care (01) ==
LOC: OBT 16:38 → L-D 16:40 → OBT 20:42
DX: O21.0 Mild hyperemesis gravidarum (principal); Z3A.26 26 weeks gestation of pregnancy; O26.892 Other specified pregnancy related conditions, second trimester; R19.7 Diarrhea, unspecified
CPT/HCPCS: 76818; 80053; 83789; 85025

== ENCOUNTER 2019-01-08 22:01 | Outpatient (CLI) | payer OTHER ==
[2019-01-08 23:45] LABS: ADD UMIC YES; UR ASCORBIC ACID NEGATIVE (NEGATIVE); UR BACTERIA FEW /HPF (NONE SEEN); UR BILIRUBIN (Dip) NEGATIVE (NEGATIVE); UR BLOOD (Dip) NEGATIVE (NEGATIVE); UR CLARITY SLIGHTLY CLOUDY (CLEAR); UR COLOR YELLOW (YELLOW); UR GLUCOSE (Dip) NEGATIVE (NEGATIVE); UR KETONES (Dip) 1+ mg/dL (NEGATIVE); UR LEUKOCYTE ESTERASE (Dip) TRACE Leu/ul (NEGATIVE); UR MUCUS MANY /HPF (NONE SEEN); UR NITRITE (Dip) NEGATIVE (NEGATIVE); UR RBC 1 /HPF (0-5); UR SPECIFIC GRAVITY (Dip) 1.023 (1.003-1.030); UR SQUAMOUS EPITHELIAL CELL MODERATE /HPF (FEW); UR TOTAL PROTEIN (Dip) NEGATIVE (NEGATIVE); UR UROBILINOGEN (Dip) 1+ mg/dL (NEGATIVE); UR WBC 4 /HPF (0-5)
[2019-01-09 00:10] LABS: ADD MAN DIFF? NO
[2019-01-09 00:15] LABS: BASOPHILS % 0.3 % (0.0-2.0); EOSINOPHILS # 0.1 10^3/ul (0.0-0.5); EOSINOPHILS % 0.8 % (0.0-7.0); HEMATOCRIT 33.1 % (37.0-47.0); HEMOGLOBIN 10.5 g/dl (12.0-16.0); LYMPHOCYTES # 2.5 10^3/ul (0.8-2.9); LYMPHOCYTES % 23.3 % (18.0-55.0); MEAN CORPUSCULAR HEMOGLOBIN 26.6 pg (29.0-33.0); MEAN CORPUSCULAR HGB CONC 31.7 g/dl (32.0-37.0); MEAN CORPUSCULAR VOLUME 83.8 fl (72.0-104.0); MEAN PLATELET VOLUME 10.6 fl (7.4-10.4); MONOCYTE # 0.8 10^3/ul (0.3-0.9); MONOCYTES % 7.1 % (0.0-13.0); NEUTROPHIL # 7.3 10^3/ul (1.6-7.5); NEUTROPHILS % 67.4 % (30.0-74.0); PLATELET COUNT 240 10^3/UL (140-415); RED BLOOD COUNT 3.95 10^6/ul (4.20-5.40); RED CELL DISTRIBUTION WIDTH 13.1 % (11.5-14.5)
[2019-01-09 00:15] LABS: WHITE BLOOD COUNT 10.9 10^3/ul (4.8-10.8)
[2019-01-09] MEDS: LACTATED RINGER'S 1,000 ML IV (03:06)
[2019-01-09] MEDS: ACETAMINOPHEN 500 MG TAB PO (03:38)
[2019-01-09] MEDS: AL HYDROX/MG HYDROX/SIMETH 30 ML CUP PO (04:25)
== END 2019-01-09 04:25 | disposition home or self-care (01) ==
LOC: OBT 22:01 → L-D 22:02 → OBT 01-09 04:25
DX: O26.892 Other specified pregnancy related conditions, second trimester (principal); R10.9 Unspecified abdominal pain; Z3A.27 27 weeks gestation of pregnancy
CPT/HCPCS: 76815; 76817; 76818; 81001; 82731; 85025; 96360

== ENCOUNTER 2019-02-09 12:41 | Emergency (ER) | payer MEDICAID ==
[2019-02-09] MEDS ORDERED: ACETAMINOPHEN 500 MG TAB PO (14:19)
== END 2019-02-09 15:56 | disposition left against medical advice (07) ==
LOC: FTE 12:41
DX: O9A.212 Injury, poisoning and certain other consequences of external causes complicating pregnancy, second trimester (principal); I10 Essential (primary) hypertension; S61.301A Unspecified open wound of left index finger with damage to nail, initial encounter; Y04.0XXA Assault by unarmed brawl or fight, initial encounter; Z3A.24 24 weeks gestation of pregnancy
CPT/HCPCS: 99282; Z7502